=== PATIENT | male | born 1970 | race Caucasian/White ===

== ENCOUNTER 2019-08-01 23:54 | Emergency (ER) | payer OTHER ==
[~2019-08-01] VITALS: Ht 177.8 cm; Wt 77.1 kg
[2019-08-02] MEDS ORDERED: AMBIEN5 MG PO (00:08)
[2019-08-02] MEDS ORDERED: SIMVASTATIN5 MG PO (00:08)
[2019-08-02] MEDS ORDERED: ORASEP SPRAY30 ML MM (01:45)
== END 2019-08-02 01:53 | disposition home or self-care (01) ==
LOC: ER 23:54
DX: T18.128A Food in esophagus causing other injury, initial encounter (principal); R13.19 Other dysphagia; X58.XXXA Exposure to other specified factors, initial encounter; Y93.89 Activity, other specified; Y92.89 Other specified places as the place of occurrence of the external cause; Y99.8 Other external cause status